=== PATIENT | female | born 1990 | race Caucasian/White ===

== ENCOUNTER 2016-08-23 16:48 | Emergency (ER) | payer BC | END 2016-08-23 22:28 | disposition home or self-care (01) | LOC: ER 16:48 | DX: O20.0 Threatened abortion (principal); Z3A.01 Less than 8 weeks gestation of pregnancy; N83.292 Other ovarian cyst, left side | CPT/HCPCS: 36415; 76817; 80053; 81001; 83690; 84702; 85025; 86901; 87088 ==

== ENCOUNTER 2016-09-03 13:34 | Emergency (ER) | payer BC ==
[2016-09-03] MEDS ORDERED: METOCLOPRAMIDE 10 MG/2 ML VIAL ONE (14:24)
[2016-09-03] MEDS ORDERED: SODIUM CHLORIDE 0.9% 1,000 ML ONE (14:24)
[2016-09-03] MEDS ORDERED: DIPHENHYDRAMINE 50 MG/ML VIAL ONE (14:24)
[2016-09-03] MEDS ORDERED: CEFTRIAXONE 1 GM VIAL ONE (16:02)
[2016-09-03] MEDS ORDERED: SODIUM CHLORIDE 0.9% 100 ML IV ONE (16:02)
== END 2016-09-03 17:18 | disposition home or self-care (01) ==
LOC: ER 13:34
DX: N30.00 Acute cystitis without hematuria (principal); R11.2 Nausea with vomiting, unspecified; Z33.1 Pregnant state, incidental
CPT/HCPCS: 36415; 80053; 81001; 83690; 84702; 84703; 85025; 87088; 87804; 96361; 96365; 96375